=== PATIENT | male | born 2000 | race Caucasian/White ===

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

== ENCOUNTER → 2021-06-09 | Outpatient (REF) | payer BC | LOC: M LAB REF 17:36 | PROVIDERS: ATTEND Pediatrics | DX: J02.9 Acute pharyngitis, unspecified (principal) ==

== ENCOUNTER → 2022-02-02 | Outpatient (CLI) | payer BC ==
[2022-02-02 18:02] LABS: BASO # 0.1 10^3/uL (0.0-0.2); BASO % 0.9 % (0.0-1.0); EOS # 0.1 10^3/uL (0.0-0.5); EOS % 0.9 % (0.0-3.0); HEMATOCRIT 47.9 % (42.0-52.0); HEMOGLOBIN 15.8 g/dl (13.5-17.5); LYMPH # 1.3 10^3/uL (1.5-5.0); LYMPH % 16.2 % (24.0-44.0); MEAN CORPUSCULAR HEMOGLOBIN 28.5 pg (27.0-33.0); MEAN CORPUSCULAR VOLUME 86.5 fl (80.0-96.0); MONO # 0.7 10^3/uL (0.0-0.8); MONO % 8.7 % (2.0-8.0); NEUTROPHILS # 5.9 10^3/uL (1.5-8.5); NEUTROPHILS % 72.8 % (36.0-66.0); PLATELET COUNT, AUTOMATED 296 10^3/uL (150-450); RED BLOOD COUNT 5.54 10^6/uL (4.30-6.10); WHITE BLOOD COUNT 8.1 10^3/uL (4.0-10.0)
[2022-02-02 18:29] LABS: ALBUMIN 4.4 GM/DL (3.2-5.2); ALT/SGPT 77 U/L (12-78); BILIRUBIN,TOTAL 0.5 MG/DL (0.2-1.0); BLOOD UREA NITROGEN 14 MG/DL (7-18); CALCIUM LEVEL 9.9 MG/DL (8.5-10.1); CARBON DIOXIDE LEVEL 25 MEQ/L (21-32); CHLORIDE LEVEL 102 MEQ/L (98-107); CREATININE FOR GFR 1.09 MG/DL (0.70-1.30); FREE T4 1.04 NG/DL (0.78-1.33); GLUCOSE, FASTING 145 MG/DL (70-100); POTASSIUM SERUM 3.9 MEQ/L (3.5-5.1); SODIUM LEVEL 136 MEQ/L (136-145); TOTAL PROTEIN 7.9 GM/DL (6.4-8.2)
[2022-02-02 19:29] LABS: HEMOGLOBIN A1c 5.5 %
== END ==
LOC: M EKG 16:48
PROVIDERS: ATTEND Pediatrics
DX: R55 Syncope and collapse (principal)

== ENCOUNTER 2022-02-03 08:25 | Emergency (ER) | payer BC ==
[~2022-02-03] VITALS: Ht 175.3 cm; Wt 127.7 kg
[2022-02-03 09:44] LABS: HEMATOCRIT 47.8 % (42.0-52.0); HEMOGLOBIN 16.2 g/dl (13.5-17.5); MEAN CORPUSCULAR HEMOGLOBIN 29.2 pg (27.0-33.0); MEAN CORPUSCULAR HGB CONC 33.9 g/dl (32.0-36.5); MEAN CORPUSCULAR VOLUME 86.1 fl (80.0-96.0); PLATELET COUNT, AUTOMATED 285 10^3/uL (150-450); RED BLOOD COUNT 5.55 10^6/uL (4.30-6.10); WHITE BLOOD COUNT 9.1 10^3/uL (4.0-10.0)
[2022-02-03 10:11] LABS: ALBUMIN 4.4 GM/DL (3.2-5.2); ALT/SGPT 86 U/L (12-78); BILIRUBIN,TOTAL 0.5 MG/DL (0.2-1.0); BLOOD UREA NITROGEN 12 MG/DL (7-18); CALCIUM LEVEL 10.2 MG/DL (8.5-10.1); CARBON DIOXIDE LEVEL 26 MEQ/L (21-32); CHLORIDE LEVEL 103 MEQ/L (98-107); CK-MB VALUE MASS < 1.0 NG/ML (<3.6); CPK CREATINE PHOSPHOKINASE 109 U/L (39-308); CREATININE FOR GFR 1.02 MG/DL (0.70-1.30); GLUCOSE, FASTING 125 MG/DL (70-100); MB/CK RELATIVE INDEX 0.92 (< OR =4); SODIUM LEVEL 133 MEQ/L (136-145)
[2022-02-03] MEDS ORDERED: NS 1,000 ML IV ONE (10:15)
[2022-02-03 12:17] VITALS: BP 132/86
== END 2022-02-03 12:20 | disposition home or self-care (01) ==
LOC: M ED 08:25
DX: E86.0 Dehydration (principal); Z88.1 Allergy status to other antibiotic agents; Z88.8 Allergy status to other drugs, medicaments and biological substances

== ENCOUNTER → 2022-02-03 | Outpatient (CLI) | payer BC | LOC: M CARPUL 13:19 | PROVIDERS: ATTEND Pediatrics | DX: Z53.9 Procedure and treatment not carried out, unspecified reason (principal) ==

== ENCOUNTER → 2022-02-08 | Outpatient (REF) | payer BC | LOC: M LAB REF 16:47 | PROVIDERS: ATTEND Pediatrics | DX: J06.9 Acute upper respiratory infection, unspecified (principal) ==

== ENCOUNTER → 2022-02-10 | Outpatient (REF) | payer BC | LOC: M LAB REF 17:05 | PROVIDERS: ATTEND Pediatrics | DX: R53.83 Other fatigue (principal); F17.293 Nicotine dependence, other tobacco product, with withdrawal ==

== ENCOUNTER → 2022-02-23 | Outpatient (CLI) | payer BC | LOC: M RAD 16:38 | PROVIDERS: ATTEND Pediatrics | DX: R51.9 Headache, unspecified (principal); M54.2 Cervicalgia; G93.0 Cerebral cysts ==

== ENCOUNTER → 2022-03-02 | Outpatient (CLI) | payer BC ==
[2022-03-02 19:06] LABS: RHEUMATOID FACTOR QUANT < 10.0 IU/ML (<15.0); TOTAL 25(OH) VITAMIN D 23.9 NG/ML (30.0-100.0); VITAMIN B12 LEVEL 442 PG/ML (247-911)
[2022-03-09 10:10] LABS: DRVV SCREEN 40.7 SEC
[2022-03-09 10:11] LABS: PTT LUPUS TYPE ANTICOAG SCREEN 1.1 (0-1.2)
[2022-03-10 15:08] LABS: ANCA-ATYPICAL <1:20 titer (Neg:<1:20); ANTI THROMBIN 3 ANTIGEN IMMUNO 115 % (72-124); ANTI THROMBIN 3 FUNCT ACTIVITY 133 % (75-135); ANTINUCLEAR ANTIBODIES DIRECT Negative (Negative); CARDIOLIPIN IGA ANTIBODY <9 APL U/mL (0-11); CARDIOLIPIN IGG ANTIBODY 12 GPL U/mL (0-14); CARDIOLIPIN IGM ANTIBODY <9 MPL U/mL (0-12); CYTOPLASMIC NEUTROP AB ANCA-C <1:20 titer (Neg:<1:20); HOMOCYST(E)INE SERUM 11.6 umol/L (0.0-14.5); PERINUCLEAR AB ANCA-P <1:20 titer (Neg:<1:20); PROTEIN C FUNCTIONAL ACTIVITY 172 % (73-180); PROTEIN S FUNCTIONAL ACTIVITY 125 % (63-140); SJOGREN'S ANTI SS-A <0.2 AI (0.0-0.9); SJOGREN'S ANTI SS-B <0.2 AI (0.0-0.9); VITAMIN B1 LEVEL WHOLE BLOOD 135.8 nmol/L (66.5-200.0); VITAMIN B6,PYRIDOXAL PHOSPHATE 14.1 ug/L (3.4-65.2); VITAMIN E(ALPHA TOCOPHEROL) 7.5 mg/L (5.9-19.4); VITAMIN E(GAMMA TOCOPHEROL) 1.3 mg/L (0.7-4.9)
== END ==
LOC: M LAB 15:18
PROVIDERS: ATTEND Psychiatry & Neurology Neurology
DX: G45.9 Transient cerebral ischemic attack, unspecified (principal)

== ENCOUNTER → 2022-03-04 | Outpatient (CLI) | payer BC | LOC: M EKG 13:59 | PROVIDERS: ATTEND Pediatrics | DX: R42 Dizziness and giddiness (principal) ==

== ENCOUNTER → 2022-04-01 | Outpatient (CLI) | payer BC ==
[~2022-04-01] MED LIST: ASPI81TA26 PO; CLON0.5T2; ISOVUE-370 76% 100ML VIAL As Ordered ONE; MAGN400T33; METO1TAB87; PRIL20TA2 PO
== END ==
LOC: M RAD 13:34
PROVIDERS: ATTEND Psychiatry & Neurology Neurology
DX: R51.9 Headache, unspecified (principal)

== ENCOUNTER 2022-04-05 13:21 | Emergency (ER) | payer BC ==
[~2022-04-05] VITALS: Ht 172.7 cm; Wt 115.5 kg
[2022-04-05] MEDS ORDERED: ASPI81TA26 PO (13:41)
[2022-04-05] MEDS ORDERED: METO1TAB87 (13:41)
[2022-04-05 13:57] LABS: BASO # 0.1 10^3/uL (0.0-0.2); BASO % 1.5 % (0.0-1.0); EOS # 0.5 10^3/uL (0.0-0.5); EOS % 6.1 % (0.0-3.0); HEMATOCRIT 49.6 % (42.0-52.0); HEMOGLOBIN 16.4 g/dl (13.5-17.5); LYMPH # 2.4 10^3/uL (1.5-5.0); LYMPH % 32.9 % (24.0-44.0); MEAN CORPUSCULAR HEMOGLOBIN 28.6 pg (27.0-33.0); MEAN CORPUSCULAR HGB CONC 33.1 g/dl (32.0-36.5); MEAN CORPUSCULAR VOLUME 86.6 fl (80.0-96.0); MONO # 0.8 10^3/uL (0.0-0.8); MONO % 11.4 % (2.0-8.0); NEUTROPHILS # 3.5 10^3/uL (1.5-8.5); NEUTROPHILS % 47.7 % (36.0-66.0); PLATELET COUNT, AUTOMATED 305 10^3/uL (150-450); RED BLOOD COUNT 5.73 10^6/uL (4.30-6.10); WHITE BLOOD COUNT 7.4 10^3/uL (4.0-10.0)
[2022-04-05] MEDS ORDERED: MAGN400T33 (14:04)
[2022-04-05] MEDS ORDERED: CLON0.5T2 (14:04)
[2022-04-05 14:10] LABS: PARTIAL THROMBOPLASTIN TIME 27.2 SECONDS (24.8-34.2)
[2022-04-05] MEDS ORDERED: NS 1,000 ML IV ONE (14:10)
[2022-04-05 14:31] LABS: ALBUMIN 4.5 GM/DL (3.2-5.2); ALT/SGPT 36 U/L (12-78); BILIRUBIN,DIRECT < 0.1 MG/DL (0.0-0.2); BILIRUBIN,TOTAL 0.4 MG/DL (0.2-1.0); BLOOD UREA NITROGEN 13 MG/DL (7-18); CARBON DIOXIDE LEVEL 25 MEQ/L (21-32); CHLORIDE LEVEL 103 MEQ/L (98-107); CREATININE FOR GFR 1.01 MG/DL (0.70-1.30); FREE T4 1.03 NG/DL (0.78-1.33); GLUCOSE, FASTING 114 MG/DL (70-100); LIPASE 122 U/L (73-393); NT-PRO BNP 20 PG/ML (<125); POTASSIUM SERUM 3.7 MEQ/L (3.5-5.1); SODIUM LEVEL 139 MEQ/L (136-145)
[2022-04-05 14:35] LABS: CK-MB VALUE MASS < 1.0 NG/ML (<3.6); CPK CREATINE PHOSPHOKINASE 101 U/L (39-308); MB/CK RELATIVE INDEX 0.99 (< OR =4)
[2022-04-05 15:41] LABS: D-DIMER QUANT < 270 ng/ml (<500)
[2022-04-05 15:51] LABS: CK-MB VALUE MASS < 1.0 NG/ML (<3.6); CPK CREATINE PHOSPHOKINASE 105 U/L (39-308); MB/CK RELATIVE INDEX 0.95 (< OR =4)
[2022-04-05 16:02] LABS: INR 0.93; PROTHROMBIN TIME 12.7 SECONDS (12.5-14.5)
[2022-04-05] MEDS ORDERED: PRIL20TA2 PO (16:32)
[2022-04-05 16:45] VITALS: BP 136/74
== END 2022-04-05 16:15 | disposition home or self-care (01) ==
LOC: M ED 13:21
DX: R00.2 Palpitations (principal); R00.0 Tachycardia, unspecified; I10 Essential (primary) hypertension; G43.909 Migraine, unspecified, not intractable, without status migrainosus; Z86.73 Personal history of transient ischemic attack (TIA), and cerebral infarction without residual deficits; Z88.0 Allergy status to penicillin; Z79.899 Other long term (current) drug therapy; Z79.82 Long term (current) use of aspirin

== ENCOUNTER → 2022-04-25 | Outpatient (REF) | payer BC ==
[~2022-04-25] MED LIST changes: -ISOVUE-370 76% 100ML VIAL As Ordered ONE
== END ==
LOC: M LAB REF 14:45
PROVIDERS: ATTEND Pediatrics
DX: R19.7 Diarrhea, unspecified (principal)

== ENCOUNTER → 2022-06-28 | Outpatient (REF) | payer BC | LOC: M LAB REF 10:15 | PROVIDERS: ATTEND Internal Medicine Gastroenterology | DX: R14.0 Abdominal distension (gaseous) (principal) ==

== ENCOUNTER → 2022-06-29 | Outpatient (CLI) | payer BC ==
[2022-06-29 09:48] LABS: BASO # 0.1 10^3/uL (0.0-0.2); BASO % 1.4 % (0.0-1.0); EOS # 0.3 10^3/uL (0.0-0.5); EOS % 5.8 % (0.0-3.0); HEMATOCRIT 46.9 % (42.0-52.0); HEMOGLOBIN 15.3 g/dl (13.5-17.5); LYMPH # 1.7 10^3/uL (1.5-5.0); LYMPH % 33.7 % (24.0-44.0); MEAN CORPUSCULAR HEMOGLOBIN 28.5 pg (27.0-33.0); MEAN CORPUSCULAR HGB CONC 32.6 g/dl (32.0-36.5); MEAN CORPUSCULAR VOLUME 87.3 fl (80.0-96.0); MONO # 0.6 10^3/uL (0.0-0.8); MONO % 10.9 % (2.0-8.0); NEUTROPHILS # 2.5 10^3/uL (1.5-8.5); NEUTROPHILS % 47.8 % (36.0-66.0); PLATELET COUNT, AUTOMATED 284 10^3/uL (150-450); RED BLOOD COUNT 5.37 10^6/uL (4.30-6.10); WHITE BLOOD COUNT 5.1 10^3/uL (4.0-10.0)
[2022-06-29 10:21] LABS: ALBUMIN 4.2 G/DL (3.2-5.2); ALKALINE PHOSPHATASE 70 U/L (46-116); ALT/SGPT 47 U/L (7.0-40); AST/SGOT 24 U/L (<34); BILIRUBIN,DIRECT 0.1 MG/DL (<0.4); BILIRUBIN,TOTAL 0.4 MG/DL (0.3-1.2); BLOOD UREA NITROGEN 17 MG/DL (9-23); CREATININE FOR GFR 0.79 MG/DL (0.70-1.30); TOTAL PROTEIN 7.6 G/DL (5.7-8.2)
[2022-07-02 23:07] LABS: IGASUB2 155.9 mg/dL (73.2-301.2); IgA SERUM (part of Subclasses) 189 mg/dL (90-386); TISSUE TRANSGLUTAMINASE IgA <2 U/mL (0-3); UNITSIGA FOR GLIADIN IGA 4 units (0-19); UNITSIGG FOR GLIADIN IGG 5 units (0-19)
== END ==
LOC: M LAB 09:05
PROVIDERS: ATTEND Internal Medicine Gastroenterology
DX: R14.0 Abdominal distension (gaseous) (principal)

== ENCOUNTER → 2022-07-22 | Outpatient (CLI) | payer BC | LOC: M WHC 07:02 | PROVIDERS: ATTEND Internal Medicine Gastroenterology | DX: K30 Functional dyspepsia (principal) ==

== ENCOUNTER 2023-12-24 18:24 | Emergency (ER) | payer BC ==
[~2023-12-24] VITALS: Ht 175.3 cm; Wt 144.8 kg
[2023-12-24 18:26] VITALS: TEMP 98.7
[2023-12-24 19:14] LABS: BASO # 0.1 10^3/uL (0.0-0.2); BASO % 1.2 % (0.0-1.0); EOS # 0.5 10^3/uL (0.0-0.5); EOS % 6.2 % (0.0-3.0); HEMATOCRIT 47.4 % (42.0-52.0); HEMOGLOBIN 15.9 g/dl (13.5-17.5); LYMPH # 2.6 10^3/uL (1.5-5.0); LYMPH % 32.3 % (24.0-44.0); MEAN CORPUSCULAR HEMOGLOBIN 28.4 pg (27.0-33.0); MEAN CORPUSCULAR HGB CONC 33.5 g/dl (32.0-36.5); MEAN CORPUSCULAR VOLUME 84.6 fl (80.0-96.0); MONO # 0.8 10^3/uL (0.0-0.8); MONO % 9.5 % (2.0-8.0); NEUTROPHILS # 4.1 10^3/uL (1.5-8.5); NEUTROPHILS % 50.4 % (36.0-66.0); PLATELET COUNT, AUTOMATED 246 10^3/uL (150-450); WHITE BLOOD COUNT 8.1 10^3/uL (4.0-10.0)
[2023-12-24 19:49] LABS: BLOOD UREA NITROGEN 18 MG/DL (9-23); CALCIUM LEVEL 9.6 MG/DL (8.5-10.1); CARBON DIOXIDE LEVEL 25 MMOL/L (20-31); CHLORIDE LEVEL 102 MMOL/L (98-107); CK-MB VALUE MASS < 1.0 NG/ML (<3.6); CREATININE FOR GFR 0.85 MG/DL (0.70-1.30); GLOMERULAR FILTRATION RATE > 60.0 (>60); GLUCOSE, FASTING 111 MG/DL (60-100); POTASSIUM SERUM 3.9 MMOL/L (3.5-5.1); SODIUM LEVEL 136 MMOL/L (136-145)
[2023-12-24 20:07] LABS: THYROID STIMULATING HORMONE 2.415 uIU/ML (0.55-4.78)
[2023-12-24 20:15] LABS: CPK CREATINE PHOSPHOKINASE 114 U/L (46-171); MB/CK RELATIVE INDEX 0.87 (< OR =4)
[2023-12-24] MEDS: NS 1,000 ML IV ONE (21:30)
[2023-12-24] MEDS: hydrALAZINE 20MG/ML 1ML VIAL IV STA (21:48)
[2023-12-24] MEDS: KETOROLAC 30 MG/ML 1ML VIAL IV ONE (22:14)
[2023-12-24 22:54] VITALS: O2SAT 96
[2023-12-24 23:01] VITALS: BP 134/58
== END 2023-12-24 23:32 | disposition home or self-care (01) ==
LOC: M ED 18:24
DX: R42 Dizziness and giddiness (principal); T67.5XXA Heat exhaustion, unspecified, initial encounter; R00.0 Tachycardia, unspecified; I10 Essential (primary) hypertension; K21.9 Gastro-esophageal reflux disease without esophagitis; Z88.1 Allergy status to other antibiotic agents; Z88.8 Allergy status to other drugs, medicaments and biological substances; Z79.1 Long term (current) use of non-steroidal anti-inflammatories (NSAID); Z79.899 Other long term (current) drug therapy
CPT/HCPCS: 36415; 70450; 70544; 70547; 70551; 71045; 80048; 82550; 82553; 83735; 84443; 84484; 85025; 93005; 96361; 96374; 99285; J1100; J1885

== ENCOUNTER 2023-12-28 17:55 | Emergency (ER) | payer BC ==
[~2023-12-28] VITALS: Ht 175.3 cm; Wt 141.7 kg
[2023-12-28 19:22] VITALS: BP 161/92
[2023-12-28] MEDS: amLODIPine 5 MG TAB PO ONE (19:22)
[2023-12-28] MEDS ORDERED: ISOVUE-370 76% 100ML VIAL As Ordered ONE (19:50)
[2023-12-28 20:07] LABS: BASO # 0.1 10^3/uL (0.0-0.2); BASO % 1.2 % (0.0-1.0); EOS # 0.1 10^3/uL (0.0-0.5); EOS % 0.8 % (0.0-3.0); HEMATOCRIT 48.3 % (42.0-52.0); HEMOGLOBIN 16.5 g/dl (13.5-17.5); LYMPH # 2.2 10^3/uL (1.5-5.0); LYMPH % 23.2 % (24.0-44.0); MEAN CORPUSCULAR HEMOGLOBIN 28.6 pg (27.0-33.0); MEAN CORPUSCULAR HGB CONC 34.2 g/dl (32.0-36.5); MEAN CORPUSCULAR VOLUME 83.7 fl (80.0-96.0); MONO % 11.2 % (2.0-8.0); NEUTROPHILS # 5.9 10^3/uL (1.5-8.5); NEUTROPHILS % 63.3 % (36.0-66.0); PLATELET COUNT, AUTOMATED 286 10^3/uL (150-450); RED BLOOD COUNT 5.77 10^6/uL (4.30-6.10); WHITE BLOOD COUNT 9.3 10^3/uL (4.0-10.0)
[2023-12-28 20:23] LABS: INR 1.02; PARTIAL THROMBOPLASTIN TIME 24.9 SECONDS (24.8-34.2); PROTHROMBIN TIME 13.1 SECONDS (12.5-14.5)
[2023-12-28 20:25] LABS: CK-MB VALUE MASS < 1.0 NG/ML (<3.6)
[2023-12-28 20:28] LABS: ALBUMIN 4.6 G/DL (3.2-5.2); ALKALINE PHOSPHATASE 70 U/L (46-116); ALT/SGPT 93 U/L (7.0-40); AST/SGOT 40 U/L (<34); BILIRUBIN,DIRECT 0.1 MG/DL (<0.4); BILIRUBIN,TOTAL 0.3 MG/DL (0.3-1.2); BLOOD UREA NITROGEN 15 MG/DL (9-23); CALCIUM LEVEL 9.8 MG/DL (8.5-10.1); CARBON DIOXIDE LEVEL 24 MMOL/L (20-31); CHLORIDE LEVEL 106 MMOL/L (98-107); CREATININE FOR GFR 0.82 MG/DL (0.70-1.30); GLOMERULAR FILTRATION RATE > 60.0 (>60); GLUCOSE, FASTING 116 MG/DL (60-100); POTASSIUM SERUM 4.1 MMOL/L (3.5-5.1); SODIUM LEVEL 140 MMOL/L (136-145); TOTAL PROTEIN 7.8 G/DL (5.7-8.2)
[2023-12-28 20:29] LABS: FREE T4 1.53 NG/DL (0.89-1.76)
[2023-12-28 20:45] LABS: CPK CREATINE PHOSPHOKINASE 102 U/L (46-171); MB/CK RELATIVE INDEX 0.98 (< OR =4)
[2023-12-28 22:18] LABS: CK-MB VALUE MASS < 1.0 NG/ML (<3.6)
[2023-12-28 22:30] VITALS: BP 129/68
[2023-12-28 22:30] LABS: CPK CREATINE PHOSPHOKINASE 94 U/L (46-171); MB/CK RELATIVE INDEX 1.06 (< OR =4)
[2023-12-28 22:40] VITALS: TEMP 97.9; O2SAT 96
== END 2023-12-28 22:50 | disposition home or self-care (01) ==
LOC: M ED 17:55
DX: R07.9 Chest pain, unspecified (principal); R51.9 Headache, unspecified; I10 Essential (primary) hypertension; R16.0 Hepatomegaly, not elsewhere classified; R00.0 Tachycardia, unspecified; I45.10 Unspecified right bundle-branch block; F17.200 Nicotine dependence, unspecified, uncomplicated; Z88.1 Allergy status to other antibiotic agents; Z79.82 Long term (current) use of aspirin; Z79.83 Long term (current) use of bisphosphonates; Z79.899 Other long term (current) drug therapy
CPT/HCPCS: 36415; 70450; 71275; 80048; 80076; 82550; 82553; 84439; 84443; 84484; 85025; 85610; 85730; 93005; 93041; 94760; 99285; Q9967

== ENCOUNTER → 2024-02-06 | Outpatient (REF) | payer BC ==
[~2024-02-06] MED LIST changes: +AMLO1TAB24 PO; +AMOXTAB PO; +AZIT-12 PO; +BUSP1TAB PO; +ESCITALOPRAM; +HYDR-3363 PO; +LEXA1TAB2 PO; +METO1TAB7 PO; +ROSU5TAB40 PO
== END ==
LOC: M LAB REF 11:22
PROVIDERS: ATTEND Physician Assistant
DX: R50.9 Fever, unspecified (principal)

== ENCOUNTER → 2024-02-07 | Outpatient (REF) | payer BC | LOC: M LAB REF 13:33 | PROVIDERS: ATTEND Physician Assistant | DX: R19.7 Diarrhea, unspecified (principal) ==

== ENCOUNTER 2024-02-08 13:50 | Inpatient (IN) | payer BC ==
[~2024-02-08] VITALS: Ht 175.3 cm; Wt 136.5 kg
[~2024-02-08 13:50] MED LIST changes: -AMLO1TAB24 PO; -AMOXTAB PO; -AZIT-12 PO; -BENZ-18 PO; -BUSP1TAB PO; -CEFD300C PO; -DOXY100T PO; -ESCITALOPRAM; -HYDR-3363 PO; -LEXA1TAB2 PO; -METO1TAB7 PO; -MUCI600T31 PO; -PROBCAP14 PO; -ROSU5TAB40 PO; -VENTAER INH
[2024-02-08] MEDS ORDERED: BUSP1TAB PO (14:00)
[2024-02-08] MEDS ORDERED: ROSU5TAB40 PO (14:00)
[2024-02-08] MEDS ORDERED: HYDR-3363 PO (14:00)
[2024-02-08] MEDS ORDERED: AZIT-12 PO (14:00)
[2024-02-08] MEDS ORDERED: AMLO1TAB24 PO (14:00)
[2024-02-08] MEDS ORDERED: ESCITALOPRAM (14:00)
[2024-02-08] MEDS ORDERED: AZITHROMYCIN 250MG TABLET PO ONE (15:50)
[2024-02-08] MEDS ORDERED: ISOVUE-370 76% 100ML VIAL As Ordered ONE (16:00)
[2024-02-08] MEDS ORDERED: LEXA1TAB2 PO (16:36)
[2024-02-08] MEDS ORDERED: AMOXTAB PO (16:36)
[2024-02-08] MEDS ORDERED: METO1TAB7 PO (16:36)
[2024-02-08] MEDS ORDERED: HOME MED LIST COMPLETE! XX SCH (16:40)
[2024-02-08] MEDS: dexAMETHasone 20MG/5ML VIAL IV ONE (17:04)
[2024-02-08] MEDS: cefTRIAXone SOD 1 GM in D5W MINI-BAG PLUS 50 ML IV ONE (17:04)
[2024-02-08] MEDS: NS 500 ML IV ONE (17:05)
[2024-02-08 17:13] LABS: CK-MB VALUE MASS < 1.0 NG/ML (<3.6)
[2024-02-08] MEDS: IPRATROPIUM 0.5MG/ALBUTEROL 2.5MG INH SOL UD 3ML (DUONEB) NEB ONE (17:13)
[2024-02-08 17:14] LABS: CPK CREATINE PHOSPHOKINASE 101 U/L (46-171); MB/CK RELATIVE INDEX 0.99 (< OR =4)
[2024-02-08] MEDS ORDERED: MAALOX 30 ML SUSP *UDC PO PRN (18:35)
[2024-02-08] MEDS ORDERED: MOM 30ML SUSPENSION UDC PO PRN (18:35)
[2024-02-08] MEDS ORDERED: ACETAMINOPHEN TAB 650MG DOSE (2X325MG) PO PRN (18:35)
[2024-02-08] MEDS: NS 1,000 ML IV ONE ×2 (18:49→20:00)
[2024-02-08] MEDS: IBUPROFEN 600MG TAB PO ONE (18:56)
[2024-02-08] MEDS: ACETAMINOPHEN 500 MG TAB PO ONE (18:57)
[2024-02-08 21:08] VITALS: BP 135/72; TEMP 98.8; O2SAT 92
[2024-02-08] MEDS: busPIRone 5 MG TAB PO SCH (21:23)
[2024-02-08] MEDS: guaiFENesin ER TABLET 600 MG TAB PO SCH (21:23)
[2024-02-08] MEDS: BENZONATATE 100MG CAPSULE PO SCH (21:23)
[2024-02-08 22:15] VITALS: O2SAT 86
[2024-02-08 22:27] VITALS: O2SAT 93
[2024-02-09 04:00] VITALS: BP 128/70; TEMP 97.3; O2SAT 90
[2024-02-09 05:19] LABS: HEMATOCRIT 42.2 % (42.0-52.0); HEMOGLOBIN 14.4 g/dl (13.5-17.5); MEAN CORPUSCULAR HEMOGLOBIN 28.1 pg (27.0-33.0); MEAN CORPUSCULAR HGB CONC 34.1 g/dl (32.0-36.5); MEAN CORPUSCULAR VOLUME 82.3 fl (80.0-96.0); PLATELET COUNT, AUTOMATED 263 10^3/uL (150-450); RED BLOOD COUNT 5.13 10^6/uL (4.30-6.10); WHITE BLOOD COUNT 12.3 10^3/uL (4.0-10.0)
[2024-02-09 05:44] LABS: BLOOD UREA NITROGEN 9 MG/DL (9-23); CALCIUM LEVEL 9.1 MG/DL (8.5-10.1); CARBON DIOXIDE LEVEL 27 MMOL/L (20-31); CHLORIDE LEVEL 102 MMOL/L (98-107); CREATININE FOR GFR 0.73 MG/DL (0.70-1.30); GLOMERULAR FILTRATION RATE > 60.0 (>60); GLUCOSE, FASTING 166 MG/DL (60-100); MAGNESIUM LEVEL 2.6 MG/DL (1.8-2.4); POTASSIUM SERUM 3.6 MMOL/L (3.5-5.1); SODIUM LEVEL 138 MMOL/L (136-145)
[2024-02-09] MEDS ORDERED: PILL CUTTER 1 EACH XX ONE (08:57)
[2024-02-09] MEDS: ENOXAPARIN 40MG/0.4ML SYRINGE (J1650 PER 10MG) SC SCH (08:58)
[2024-02-09] MEDS: amLODIPine 5 MG TAB PO SCH (08:59)
[2024-02-09] MEDS: ASPIRIN 81MG ENTERIC TABLET PO SCH (08:59)
[2024-02-09] MEDS: ROSUVASTATIN 10 MG TAB (CRESTOR) PO SCH (09:00)
[2024-02-09] MEDS: ESCITALOPRAM OXALATE 10 MG TAB (LEXAPRO) PO SCH (09:01)
[2024-02-09] MEDS: cefTRIAXone SOD 2 GM in D5W MINI-BAG PLUS 50 ML IV SCH (09:01)
[2024-02-09] MEDS: METOPROLOL SUCC (TopROL XL) 50MG **XL** TAB PO SCH (09:01)
[2024-02-09] MEDS: DOXYCYCLINE HYCLATE 100MG TABLET PO SCH (09:01)
[2024-02-09 10:29] VITALS: O2SAT 82
[2024-02-09 10:30] VITALS: O2SAT 90
[2024-02-09] MEDS: ALBUTEROL SULFATE 2.5MG/0.5ML INH NEB SOLN NEB PRN (11:51)
[2024-02-09 12:00] VITALS: BP 130/76; TEMP 97; O2SAT 93
[2024-02-09] MEDS: dexAMETHasone 20MG/5ML VIAL IV SCH (12:02)
[2024-02-09 20:58] VITALS: BP 130/77; TEMP 98.6; O2SAT 93
[2024-02-10 04:33] VITALS: BP 129/82; TEMP 98.1; O2SAT 93
[2024-02-10 06:27] LABS: BASO # 0.1 10^3/uL (0.0-0.2); BASO % 0.5 % (0.0-1.0); EOS % 0.2 % (0.0-3.0); HEMATOCRIT 39.7 % (42.0-52.0); HEMOGLOBIN 13.5 g/dl (13.5-17.5); LYMPH # 2.1 10^3/uL (1.5-5.0); LYMPH % 16.3 % (24.0-44.0); MEAN CORPUSCULAR HEMOGLOBIN 28.2 pg (27.0-33.0); MEAN CORPUSCULAR VOLUME 82.9 fl (80.0-96.0); MONO # 1.1 10^3/uL (0.0-0.8); MONO % 8.6 % (2.0-8.0); NEUTROPHILS # 8.8 10^3/uL (1.5-8.5); NEUTROPHILS % 68.2 % (36.0-66.0); PLATELET COUNT, AUTOMATED 320 10^3/uL (150-450); RED BLOOD COUNT 4.79 10^6/uL (4.30-6.10); WHITE BLOOD COUNT 12.9 10^3/uL (4.0-10.0)
[2024-02-10 06:52] LABS: BLOOD UREA NITROGEN 12 MG/DL (9-23); CARBON DIOXIDE LEVEL 30 MMOL/L (20-31); CHLORIDE LEVEL 104 MMOL/L (98-107); CREATININE FOR GFR 0.74 MG/DL (0.70-1.30); GLOMERULAR FILTRATION RATE > 60.0 (>60); GLUCOSE, FASTING 137 MG/DL (60-100); MAGNESIUM LEVEL 2.3 MG/DL (1.8-2.4); POTASSIUM SERUM 3.6 MMOL/L (3.5-5.1); SODIUM LEVEL 141 MMOL/L (136-145)
[2024-02-10 12:00] VITALS: BP 123/64; TEMP 97.5; O2SAT 93
[2024-02-10 20:00] VITALS: BP 136/75; TEMP 97.7; O2SAT 95
[2024-02-11 04:00] VITALS: BP 121/58; TEMP 98.7; O2SAT 92
[2024-02-11 05:58] LABS: HEMATOCRIT 40.8 % (42.0-52.0); HEMOGLOBIN 13.7 g/dl (13.5-17.5); MEAN CORPUSCULAR HEMOGLOBIN 28.1 pg (27.0-33.0); MEAN CORPUSCULAR HGB CONC 33.6 g/dl (32.0-36.5); MEAN CORPUSCULAR VOLUME 83.6 fl (80.0-96.0); PLATELET COUNT, AUTOMATED 362 10^3/uL (150-450); RED BLOOD COUNT 4.88 10^6/uL (4.30-6.10); WHITE BLOOD COUNT 10.1 10^3/uL (4.0-10.0)
[2024-02-11 06:23] LABS: BLOOD UREA NITROGEN 14 MG/DL (9-23); CALCIUM LEVEL 8.4 MG/DL (8.5-10.1); CARBON DIOXIDE LEVEL 30 MMOL/L (20-31); CHLORIDE LEVEL 103 MMOL/L (98-107); CREATININE FOR GFR 0.76 MG/DL (0.70-1.30); GLOMERULAR FILTRATION RATE > 60.0 (>60); GLUCOSE, FASTING 104 MG/DL (60-100); MAGNESIUM LEVEL 2.1 MG/DL (1.8-2.4); POTASSIUM SERUM 3.5 MMOL/L (3.5-5.1); SODIUM LEVEL 140 MMOL/L (136-145)
[2024-02-11 06:27] LABS: ATYPICAL LYMPH 4 % (0-5); BASOPHILS 2 % (0-1); EOSINOPHILS 5 % (0-3); LYMPHOCYTES 22 % (16-44); MONOCYTES 8 % (0-5); NEUTROPHILS 59 % (28-66)
[2024-02-11 06:28] LABS: ANISOCYTOSIS 1+; PLATELET ESTIMATE NORMAL (NORMAL)
[2024-02-11 06:35] LABS: PROCALCITONIN 0.16 ng/ml
[2024-02-11 08:56] VITALS: BP 135/91
[2024-02-11] MEDS ORDERED: MUCI600T31 PO (11:13)
[2024-02-11] MEDS ORDERED: DOXY100T PO (11:13)
[2024-02-11] MEDS ORDERED: BENZ-18 PO (11:13)
[2024-02-11] MEDS ORDERED: CEFD300C PO (11:13)
[2024-02-11] MEDS ORDERED: PROBCAP14 PO (11:13)
[2024-02-11] MEDS ORDERED: VENTAER INH (11:16)
[2024-02-11 12:00] VITALS: BP 115/69; TEMP 98.7; O2SAT 94
[2024-02-13 18:38] LABS: MYCOPLASMA PNEUMONIAE IGG 2.18 (<=0.90)
[2024-02-13 19:18] LABS: URINE STREP PNEUMONIAE ANTIGEN NOT DETECTED (NOT DETECT)
== END 2024-02-11 12:51 | disposition home or self-care (01) | DRG 720 ==
LOC: M ED 13:50 → M ED INP 18:31 → M MSPAV 21:08
PROVIDERS: ADMIT Student in an Organized Health Care Education/Training Program; ATTEND Student in an Organized Health Care Education/Training Program
DX: A41.9 Sepsis, unspecified organism (principal); J18.9 Pneumonia, unspecified organism; E66.9 Obesity, unspecified; I10 Essential (primary) hypertension; E78.5 Hyperlipidemia, unspecified; F41.9 Anxiety disorder, unspecified; Z86.73 Personal history of transient ischemic attack (TIA), and cerebral infarction without residual deficits; Z79.82 Long term (current) use of aspirin; Z79.899 Other long term (current) drug therapy; G47.33 Obstructive sleep apnea (adult) (pediatric)

== ENCOUNTER → 2024-02-08 | Outpatient (CLI) | payer BC ==
[~2024-02-08] MED LIST changes: +BENZ-18 PO; +CEFD300C PO; +DOXY100T PO; +MUCI600T31 PO; +PROBCAP14 PO; +VENTAER INH
[2024-02-08 11:28] LABS: HEMATOCRIT 44.2 % (42.0-52.0); HEMOGLOBIN 15.3 g/dl (13.5-17.5); MEAN CORPUSCULAR HEMOGLOBIN 28.5 pg (27.0-33.0); MEAN CORPUSCULAR HGB CONC 34.6 g/dl (32.0-36.5); MEAN CORPUSCULAR VOLUME 82.5 fl (80.0-96.0); PLATELET COUNT, AUTOMATED 243 10^3/uL (150-450); RED BLOOD COUNT 5.36 10^6/uL (4.30-6.10); WHITE BLOOD COUNT 12.5 10^3/uL (4.0-10.0)
[2024-02-08 11:32] LABS: ALBUMIN 3.1 G/DL (3.2-5.2); ALKALINE PHOSPHATASE 75 U/L (46-116); ALT/SGPT 85 U/L (7.0-40); AST/SGOT 70 U/L (<34); BILIRUBIN,TOTAL 0.4 MG/DL (0.3-1.2); BLOOD UREA NITROGEN 11 MG/DL (9-23); CALCIUM LEVEL 8.9 MG/DL (8.5-10.1); CARBON DIOXIDE LEVEL 27 MMOL/L (20-31); CHLORIDE LEVEL 99 MMOL/L (98-107); CREATININE FOR GFR 0.89 MG/DL (0.70-1.30); GLOMERULAR FILTRATION RATE > 60.0 (>60); GLUCOSE, FASTING 113 MG/DL (60-100); POTASSIUM SERUM 3.4 MMOL/L (3.5-5.1); SODIUM LEVEL 134 MMOL/L (136-145); TOTAL PROTEIN 6.7 G/DL (5.7-8.2)
[2024-02-08 11:37] LABS: ERYTHROCYTE SEDIMENTATION RATE 52 mm/hr (0-15)
[2024-02-08 11:56] LABS: ATYPICAL LYMPH 2 % (0-5); EOSINOPHILS 1 % (0-3); LYMPHOCYTES 8 % (16-44); MONOCYTES 10 % (0-5); NEUTROPHILS 46 % (28-66)
[2024-02-08 11:57] LABS: PLATELET ESTIMATE NORMAL (NORMAL)
[2024-02-09 13:49] LABS: EBV VIRAL CAPSID AG IGM < 36.00 U/mL (<36.00)
== END ==
LOC: M RAD 10:06
PROVIDERS: ATTEND Pediatrics
DX: J18.9 Pneumonia, unspecified organism (principal); J98.4 Other disorders of lung

== ENCOUNTER → 2024-08-09 | Outpatient (REF) | payer BC ==
[~2024-08-09] MED LIST changes: +AMLO1TAB24 PO; +AMOXTAB PO; +AZIT-12 PO; +BENZ-18 PO; +BUSP1TAB PO; +CEFD300C PO; +DOXY100T PO; +ESCITALOPRAM; +HYDR-3363 PO; +LEXA1TAB2 PO; +METO1TAB7 PO; +MUCI600T31 PO; +PROBCAP14 PO; +ROSU5TAB49 PO; +VENTAER INH
== END ==
LOC: M LAB REF 12:49
PROVIDERS: ATTEND Pediatrics
DX: J02.9 Acute pharyngitis, unspecified (principal)

== ENCOUNTER → 2024-08-24 | Outpatient (CLI) | payer BC | LOC: M RAD 14:21 | PROVIDERS: ATTEND Physician Assistant | DX: R50.9 Fever, unspecified (principal) ==

== ENCOUNTER → 2025-04-11 | Outpatient (REF) | payer BC | LOC: M LAB REF 17:30 | PROVIDERS: ATTEND Physician Assistant | DX: J02.9 Acute pharyngitis, unspecified (principal) ==